=== PATIENT | male | born 1965 | race Caucasian/White ===

== ENCOUNTER 2017-04-15 16:34 | Emergency (ER) | payer MEDICAID ==
[2017-04-15 16:35] VITALS: BP 152/86; PULSE 67; RESP 22; TEMP 97.6; O2SAT 98
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
[2017-04-15] MEDS ORDERED: TRAM50 PO (17:59)
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
== END 2017-04-15 18:20 | disposition home or self-care (01) ==
LOC: NEPD 16:34
DX: S20.212A Contusion of left front wall of thorax, initial encounter (principal); F17.200 Nicotine dependence, unspecified, uncomplicated; Y04.2XXA Assault by strike against or bumped into by another person, initial encounter
CPT/HCPCS: 71020; 99283

== ENCOUNTER 2017-04-27 12:16 | Emergency (ER) | payer MEDICAID ==
[~2017-04-27 12:16] MED LIST: TRAM50 PO
[2017-04-27 12:18] VITALS: BP 133/73; PULSE 98; RESP 24; TEMP 98.4; O2SAT 97
--- NOTE | 2017-04-27 14:03 | RADRPT ---
EXAM DATE/TIME: 04/27/2017 13:18 [facility] COMPARISON: CHEST PA & LAT, April 15, 2017, 17:01. INDICATIONS : Left rib pain x1 week. MEDICAL HISTORY : None. SURGICAL HISTORY : None. ENCOUNTER: Initial ACUITY: 1 day PAIN SCORE: 4/10 LOCATION: Left chest FINDINGS: PA and lateral views of the chest demonstrate the lungs to be symmetrically aerated without evidence of mass, infiltrate or effusion. The cardiomediastinal contours are unremarkable. Previous kyphopla sty at T12. CONCLUSION: No acute disease. Eliot Magallanes MD FACR on April 27, 2017 at 14:00 Board Certified Radiologist. This report was verified electronically.
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
[2017-04-27] MEDS ORDERED: AZIT500T2 PO (19:57)
[2017-04-27] MEDS ORDERED: PRED-503 PO (20:02)
[2017-04-27] MEDS ORDERED: VENTAER INH (20:02)
== END 2017-04-27 14:51 | disposition left against medical advice (07) ==
LOC: NETRI 12:16
DX: R07.81 Pleurodynia (principal); R06.02 Shortness of breath; R04.2 Hemoptysis; I10 Essential (primary) hypertension; K21.9 Gastro-esophageal reflux disease without esophagitis; J44.9 Chronic obstructive pulmonary disease, unspecified; F17.200 Nicotine dependence, unspecified, uncomplicated; Z79.899 Other long term (current) drug therapy; Z88.6 Allergy status to analgesic agent
CPT/HCPCS: 71046; 99283

== ENCOUNTER 2017-04-27 18:16 | Emergency (ER) | payer MEDICAID ==
[2017-04-27 18:18] VITALS: BP 133/74; PULSE 89; RESP 20; TEMP 97.8; O2SAT 97
--- NOTE | 2017-04-27 19:50 | PD ---
HPI Chief Complaint: Musculoskeletal Complaint Time Seen by Provider: 19:39 Travel History International Travel<30 days: No Contact w/Intl Traveler<30days: No Traveled to known affect area: No History of Present Illness HPI 52-year-old male presents emergency Department with complaint of continued left rib cage pain after being seen on 04/15 with left rib contusion. He reports onset of nasal congestion, cough times one week. Denies chest pain or chest tightness. Reports shortness of breath and wheezing and states worse with coughing. Reports hot and cold sweats. Unknown fevers. Says he's been coughing up yellow tinged sputum with some blood specks in it. Denies coughing up felecia blood. Reports streaks of blood in his nasal congestion also. Reports history of COPD and hypertension. denies history of DVT/PE. Has not taken any medications or tried any treatments to alleviate the symptoms. Allergies to aspirin and diphenhydramine. No primary care provider. Has no other medical complaints. No other modifying factors or associated signs and symptoms. PFSH Past Medical History Cardiovascular Problems: Yes (HTN) Diminished Hearing: No GERD: Yes Hypertension: Yes Respiratory: Yes (COPD) Immunizations Current: Yes Ulcer: Yes Tetanus Vaccination: Unknown Influenza Vaccination: Yes Past Surgical History Abdominal Surgery: Yes (HIATAL HERNIA REPAIR X2 ) Appendectomy: Yes Cholecystectomy: Yes Tonsillectomy: Yes Social History Alcohol Use: Yes (OCCASIONAL) Tobacco Use: Yes (1 PPD) Substance Use: Yes (MARIJUANA) Allergies-Medications (Allergen,Severity, Reaction): Coded Allergies: aspirin (Verified Allergy, Unknown, 04/27/17) diphenhydramine (Verified Allergy, Unknown, 04/27/17) Reported Meds & Prescriptions Reported Meds & Active Scripts Active Deltasone (Prednisone) 20 Mg Tab 20 Mg PO BID 5 Days Ventolin Hfa 18 GM Inh (Albuterol Sulfate) 90 Mcg/Act Aer 2 Puff INH Q4-6H PRN Azithromycin 500 Mg Tab 500 Mg PO DAILY Ultram (Tramadol HCl) 50 Mg Tab 50 Mg PO Q4H PRN Review of Systems Except as stated in HPI: all other systems reviewed are Neg Physical Exam Narrative GENERAL: Well-nourished, well-developed male patient, in no acute distress; afebrile, nontoxic-appearing SKIN: Warm and dry. No rash. HEAD: Atraumatic. Normocephalic. EYES: Pupils equal and round. No scleral icterus. No injection or drainage. ENT: Mucosa pink and moist. No erythema or exudates. No uvular edema. No uvular , palatal, or tonsillar deviation. Airway patent. EARS: Bilateral pinnae and external canals appear within normal limits. Bilateral tympanic membranes without erythema, dullness or perforation. NECK: Trachea midline. No lymphadenopathy. CARDIOVASCULAR: Regular rate and rhythm. No murmur appreciated. RESPIRATORY: No accessory muscle use. Mild Wheezing to auscultation. Breath sounds equal bilaterally. No retractions or tachypnea. Dry cough. GASTROINTESTINAL: Abdomen soft, non-tender, nondistended. Hepatic and splenic margins not palpable. Bowel sounds are active 4 quadrants. MUSCULOSKELETAL: No obvious deformities. No clubbing. No cyanosis. No edema. NEUROLOGICAL: Awake and alert. Oriented 3. No obvious cranial nerve deficits. Motor grossly within normal limits. Normal speech. Moves all extremities. 5/5 strength to all extremities. PSYCHIATRIC: Appropriate mood and affect; insight and judgment normal. Data Data Last Documented VS Vital Signs Date Time Temp Pulse Resp B/P (MAP) Pulse Ox O2 Delivery O2 Flow Rate FiO2 04/27/17 18:18 97.8 89 20 133/74 (93) 97 Orders Orders Acetaminophen (Tylenol) (04/27/17 20:00) Ed Discharge Order (04/27/17 19:58) Prednisone (Deltasone) (04/27/17 20:15) Albuterol Neb (Albuterol Neb) (04/27/17 20:15) [facility] Medical Decision Making Medical Screen Exam Complete: Yes Emergency Medical Condition: Yes Medical Record Reviewed: Yes Differential Diagnosis COPD exacerbation, rib pain, upper respiratory infection, pneumonia Narrative Course 52-year-old male with history of COPD with cough and cold symptoms times one week. Minimal wheezing throughout on auscultation of the lung godinez. Patient is in no acute distress. No retractions or tachypnea. Left rib cage with reproducible tenderness on palpation; without crepitance. Chest x-ray ordered in triage on previous AMA visit; the patient states he was sitting in the waiting room sleeping and did not hear his name called so he had a reregister. 194: Chest x-ray concludes: With no acute findings. Albuterol nebulizer Deltasone ordered in the ear. Tylenol ordered for pain. Ventolin inhaler, Deltasone, azithromycin prescribed for home. Instructed patient to follow up with primary care provider. Patient verbalizes understanding and agreement with treatment plan. Patient is medically cleared and stable for discharge. Discussed reasons to return to the emergency department. Patient agrees with treatment plan. The patients vital signs are stable and the patient is stable for outpatient follow-up and treatment. Patient discharged home, stable and in no acute distress. Diagnosis Primary Impression: Rib pain on left side Additional Impressions: COPD exacerbation Upper respiratory infection Qualified Codes: J06.9 - Acute upper respiratory infection, unspecified Referrals: [facility] Primary Care Physician Patient Instructions: COPD (Chronic Obstructive Pulmonary Disease) (ED), General Instructions, Rib Contusion (ED), Upper Respiratory Infection (ED) Additional Instructions: Antibiotics as prescribed and complete full course Ibuprofen or Tylenol as instructed and as needed for fever/pain Crbr-[id number] cough and cold medications as directed and as needed for symptom management Get plenty of sleep/rest Drink plenty of fluids to prevent dehydration; popsicles and Gatorade Use an air humidifier/turn off ceiling fans Follow-up with primary care provider Return immediately to the emergency department with worsening of symptoms Med/Other Pt SpecificInfo: Prescription(s) given Scripts Prednisone (Deltasone) 20 Mg Tab 20 MG PO BID for 5 Days, #10 TAB 0 Refills Prov: Diane Back 04/27/17 Albuterol 18 GM Inh (Ventolin Hfa 18 GM Inh) 90 Mcg/Act Aer 2 PUFF INH Q4-6H Y for SOB/WHEEZING, #1 INHALER 0 Refills Prov: Diane Back 04/27/17 Azithromycin (Azithromycin) 500 Mg Tab 500 MG PO DAILY for Infection, #5 TAB 0 Refills Prov: Diane Back 04/27/17 Disposition: 01 DISCHARGE HOME Condition: Stable Diane Back Apr 27, 2017 19:50
[2017-04-27] MEDS ORDERED: AZIT500T2 PO (19:57)
[2017-04-27] MEDS ORDERED: ACETAMINOPHEN 325 MG TAB PO ONE (20:00)
[2017-04-27] MEDS ORDERED: VENTAER INH (20:02)
[2017-04-27] MEDS ORDERED: PRED-503 PO (20:02)
[2017-04-27] MEDS ORDERED: predniSONE 20 MG TAB PO ONE (20:15)
[2017-04-27] MEDS ORDERED: RESP: ALBUTEROL 2.5 MG/3 ML NEB (SCH) INH ONE (20:15)
== END 2017-04-27 20:26 | disposition home or self-care (01) ==
LOC: NEPK 18:16
DX: R07.81 Pleurodynia (principal); J44.1 Chronic obstructive pulmonary disease with (acute) exacerbation; J06.9 Acute upper respiratory infection, unspecified; I10 Essential (primary) hypertension; K21.9 Gastro-esophageal reflux disease without esophagitis; F17.200 Nicotine dependence, unspecified, uncomplicated; Z79.51 Long term (current) use of inhaled steroids; Z79.899 Other long term (current) drug therapy; Z88.6 Allergy status to analgesic agent
CPT/HCPCS: 94664; 99284; J7512; J7613